=== PATIENT | female | born 1995 | race Hispanic/Latino ===

== ENCOUNTER 2017-06-09 18:26 | Emergency (ER) | payer MEDICAID ==
[2017-06-09 18:44] VITALS: BP 138/90
[2017-06-09 19:31] LABS: Bacteria,Urine 1+ /HPF (Negative); Bilirubin,Urine NEG (Negative); Blood,Urine NEG (Negative); Ketones,Urine NEG (Negative); Leukocyte Esterase,Urine NEG (Negative); Mucus,Urine 3+ /HPF; Nitrite,Urine NEG (Negative); Urobilinogen,Urine < 2.0 mg/dL (<2.0)
[2017-06-09 19:36] LABS: Hematocrit 40.6 % (30.3-42.9); Hemoglobin 13.7 gm/dl (10.1-14.3); Mean Corpuscular HGB Conc 34 % (30-34); Mean Corpuscular Hemoglobin 28 pg (28-32); Mean Corpuscular Volume 83 fl (79-97); Platelet Count 257 K/mm3 (140-440); Red Blood Count 4.87 M/mm3 (3.65-5.03); Red Cell Distribution Width 13.1 % (13.2-15.2); White Blood Count 15.6 K/mm3 (4.5-11.0)
[2017-06-09 19:59] LABS: Alanine Aminotransferase 7 units/L (7-56); Albumin 4.7 g/dL (3.9-5); Albumin/Globulin Ratio 1.4 %; Alkaline Phosphatase 76 units/L (35-129); Anion Gap 19 mmol/L; BUN/Creatinine Ratio 13.75; Blood Urea Nitrogen 11 mg/dL (7-17); Calcium 9.3 mg/dL (8.4-10.2); Carbon Dioxide 25 mmol/L (22-30); Chloride 102.2 mmol/L (98-107); Glucose 116 mg/dL (65-100); Lipase 28 units/L (13-60); Potassium 4.1 mmol/L (3.6-5.0); Sodium 142 mmol/L (137-145)
[2017-06-09 20:07] LABS: Basophils % (Manual) 0 % (0.0-1.8); Blastocytes % (Manual) 0 %; Eosinophils % (Manual) 0 % (0.0-4.3)
[2017-06-09 20:08] LABS: Diff Status Complete; RBC Morphology Normal
--- NOTE | 2017-06-11 01:49 | ED Elopement Review ---
ED Pt Elopement review - Results review Lab results: Laboratory Tests 06/09/17 06/09/17 06/09/17 19:22 19:22 Unknown WBC 15.6 H RBC 4.87 Hgb 13.7 Hct 40.6 MCV 83 MCH 28 MCHC 34 RDW 13.1 L Plt Count 257 Add Manual Diff Complete Total Counted 100 Seg Neutrophils % Drafting Technician Seg Neuts % (Manual) 87.0 H Band Neutrophils % 0 Lymphocytes % (Manual) 7.0 L Reactive Lymphs % (Man) 0 Monocytes % (Manual) 6.0 Eosinophils % (Manual) 0 Basophils % (Manual) 0 Metamyelocytes % 0 Myelocytes % 0 Promyelocytes % 0 Blast Cells % 0 Nucleated RBC % Not Reportable Seg Neutrophils # Man 13.6 H Band Neutrophils # 0.0 Lymphocytes # (Manual) 1.1 L Abs React Lymphs (Man) 0.0 Monocytes # (Manual) 0.9 H Eosinophils # (Manual) 0.0 Basophils # (Manual) 0.0 Metamyelocytes # 0.0 Myelocytes # 0.0 Promyelocytes # 0.0 Blast Cells # 0.0 WBC Morphology Not Reportable Hypersegmented Neuts Not Reportable Hyposegmented Neuts Not Reportable Hypogranular Neuts Not Reportable Smudge Cells Not Reportable Toxic Granulation Not Reportable Toxic Vacuolation Not Reportable Dohle Bodies Not Reportable Pelger-Huet Anomaly Not Reportable Dariana Rods Not Reportable Platelet Estimate Appears normal Clumped Platelets Not Reportable Plt Clumps, EDTA Not Reportable Large Platelets Not Reportable Giant Platelets Not Reportable Platelet Satelliting Not Reportable Plt Morphology Comment Not Reportable RBC Morphology Normal Dimorphic RBCs Not Reportable Polychromasia Not Reportable Hypochromasia Not Reportable Poikilocytosis Not Reportable Anisocytosis Not Reportable Microcytosis Not Reportable Macrocytosis Not Reportable Spherocytes Not Reportable Pappenheimer Bodies Not Reportable Sickle Cells Not Reportable Target Cells Not Reportable Tear Drop Cells Not Reportable Ovalocytes Not Reportable Helmet Cells Not Reportable M[place] Bodies Not Reportable Morning Sun Rings Not Reportable [place] Cells Not Reportable Bite Cells Not Reportable Crenated Cell Not Reportable Elliptocytes Not Reportable Acanthocytes (Spur) Not Reportable Rouleaux Not Reportable Hemoglobin C Crystals Not Reportable Schistocytes Not Reportable Malaria parasites Not Reportable Jonnie Bodies Not Reportable Hem Pathologist Commnt No Sodium 142 Potassium 4.1 Chloride 102.2 Carbon Dioxide 25 Anion Gap 19 BUN 11 Creatinine 0.8 Estimated GFR > 60 BUN/Creatinine Ratio 13.75 Glucose 116 H Calcium 9.3 Total Bilirubin 1.00 AST 11 ALT 7 Alkaline Phosphatase 76 Total Protein 8.0 Albumin 4.7 Albumin/Globulin Ratio 1.4 Lipase 28 Urine Color Yellow Urine Turbidity Clear Urine pH 6.0 Ur Specific [place] 1.030 Urine Protein 30 mg/dl Urine Glucose (UA) Neg Urine Ketones Neg Urine Blood Neg Urine Nitrite Neg Ur Reducing Substances Not Reportable Urine Bilirubin Neg Urine Ictotest Not Reportable Urine Urobilinogen < 2.0 Ur Leukocyte Esterase Neg Urine WBC (Auto) 2.0 Urine RBC (Auto) 4.0 U Epithel Cells (Auto) 7.0 Urine Bacteria (Auto) 1+ Urine Mucus 3+ Urine HCG, Qual Negative - Call Back decision Pt Call Back Decision: Call pt to return to ED QUIANA (call to return)
== END 2017-06-09 21:35 | disposition left against medical advice (07) ==
LOC: ED 18:26
DX: R10.30 Lower abdominal pain, unspecified (principal); R11.2 Nausea with vomiting, unspecified; Z53.21 Procedure and treatment not carried out due to patient leaving prior to being seen by health care provider
CPT/HCPCS: 36415; 80053; 81001; 81025; 83690; 85007; 85025

== ENCOUNTER 2017-06-10 10:10 | Observation (INO) | payer MEDICAID, OTHER ==
[2017-06-10] MEDS ORDERED: TYLENOL PO ONE (10:36)
[2017-06-10] MEDS ORDERED: TYLENOL ONE (10:42)
[2017-06-10 11:18] LABS: Basophils % (Auto) 0.4 % (0.0-1.8); Hematocrit 39.1 % (30.3-42.9); Hemoglobin 13.5 gm/dl (10.1-14.3); Mean Corpuscular HGB Conc 35 % (30-34); Mean Corpuscular Hemoglobin 29 pg (28-32); Mean Corpuscular Volume 83 fl (79-97); Platelet Count 222 K/mm3 (140-440); Red Blood Count 4.71 M/mm3 (3.65-5.03); Red Cell Distribution Width 13.3 % (13.2-15.2)
[2017-06-10 11:22] LABS: Bacteria,Urine 1+ /HPF (Negative); Bilirubin,Urine NEG (Negative); Blood,Urine NEG (Negative); Ketones,Urine NEG (Negative); Leukocyte Esterase,Urine TR (Negative); Mucus,Urine 3+ /HPF; Nitrite,Urine NEG (Negative)
[2017-06-10 11:37] LABS: Alanine Aminotransferase 13 units/L (7-56); Albumin 4.1 g/dL (3.9-5); Albumin/Globulin Ratio 1.1 %; Alkaline Phosphatase 64 units/L (35-129); Anion Gap 20 mmol/L; BUN/Creatinine Ratio 15.71; Blood Urea Nitrogen 11 mg/dL (7-17); Calcium 8.8 mg/dL (8.4-10.2); Carbon Dioxide 22 mmol/L (22-30); Chloride 99.1 mmol/L (98-107); Glucose 111 mg/dL (65-100); Lipase 33 units/L (13-60); Potassium 3.7 mmol/L (3.6-5.0); Sodium 137 mmol/L (137-145); Total Protein 7.8 g/dL (6.3-8.2)
--- NOTE | 2017-06-10 21:17 | Emergency Department Report ---
HPI - General Chief Complaint: Abdominal Pain Time Seen by Provider: 06/10/17 21:17 - HPI HPI: Patient came to the with right lower quadrant pain radiating to periumbilical area, fever, chills for 1 day. Patient denies any alleviating or exacerbating factors. Patient denies any vomiting but does have nausea. Denies diarrhea. Patient does not have past medical history. ED Past Medical Hx - Past Medical History Hx Asthma: Yes (as a child) - Social History Smoking Status: Current Every Day Smoker Substance Use Type: Alcohol - Medications Home Medications: Home Medications Medication Instructions Recorded Confirmed Last Taken Type ALBUTEROL Inhaler [ProAir HFA 2 puff IH QID PRN #1 inhalation 05/05/15 Unknown Rx Inhaler] ED Review of Systems ROS: Stated complaint: LOWER ABD/RIB PAIN Other details as noted in HPI Comment: All other systems reviewed and negative Constitutional: no symptoms reported Gastrointestinal: abdominal pain, nausea Genitourinary: as per HPI Physical Exam - Physical Exam Vital Signs: Vital Signs 06/10/17 06/10/17 06/10/17 10:33 17:50 20:51 Temperature 102.1 F H 99.8 F H 99.7 F H Pulse Rate 127 H 116 H 118 H Respiratory 22 16 16 Rate Blood Pressure 126/84 129/89 122/74 O2 Sat by Pulse 98 100 Oximetry Physical Exam: GENERAL: The patient is well-developed well-nourished [] HEENT: Normocephalic. Atraumatic. Extraocular motions are intact. Patient has moist mucous membranes. NECK: Supple. No meningitic signs are noted. There is no adenopathy noted. CHEST/LUNGS: Clear to auscultation. There is no respiratory distress noted. HEART/CARDIOVASCULAR: Regular. There is no tachycardia. There is no gallop rub or murmur. ABDOMEN: Patient has right lower quadrant tenderness, nondistended, no rebound. SKIN: There is no rash. There is no edema. There is no diaphoresis. NEURO: The patient is awake, alert, and oriented. The patient is cooperative. The patient has no focal neurologic deficits. The patient has normal speech. Cranial nerves II through XII grossly intact, no drift. Moves all extremities well MUSCULOSKELETAL: There is no evidence of acute injury. ED Course Vital Signs 06/10/17 06/10/17 06/10/17 10:33 17:50 20:51 Temperature 102.1 F H 99.8 F H 99.7 F H Pulse Rate 127 H 116 H 118 H Respiratory 22 16 16 Rate Blood Pressure 126/84 129/89 122/74 O2 Sat by Pulse 98 100 Oximetry ED Medical Decision Making - Lab Data Result diagrams: 06/10/17 11:00 06/10/17 11:00 Critical care attestation.: If time is entered above; I have spent that time in minutes in the direct care of this critically ill patient, excluding procedure time. ED Disposition Clinical Impression: Acute appendicitis Qualifiers: Acute appendicitis type: unspecified acute appendicitis type Qualified Code(s) : K35.80 - Unspecified acute appendicitis Disposition: 09 OP ADMIT IP TO THIS HOSP Is pt being admited?: Yes Does the pt Need Aspirin: No Condition: Stable Instructions: Abdominal Pain (ED) Referrals: PRIMARY CARE, [Primary Care Provider] - 3-5 Days
[2017-06-10] MEDS ORDERED: NACL 0.9% 1000 ML 1,000 ML IV ONE ×2 (21:18→22:39)
[2017-06-10] MEDS ORDERED: MORPHINE IV ONE (21:28)
[2017-06-10] MEDS ORDERED: ZOFRAN IV ONE (21:28)
[2017-06-10] MEDS ORDERED: NACL ONE (21:38)
--- NOTE | 2017-06-10 22:27 | Cat Scan Report ---
FINAL REPORT PROCEDURE: CT ABDOMEN PELVIS W CON TECHNIQUE: Computerized axial tomography of the abdomen and pelvis was performed after the IV injection of iodinated nonionic contrast. HISTORY: abd pain COMPARISON: No prior studies are available for comparison. FINDINGS: Visualized lower thorax: No significant abnormality. Liver: Normal size and attenuation. Spleen: Normal size and attenuation. Gallbladder and biliary system: Normal. Pancreas: Normal. Adrenals: Normal. Kidneys: Left kidney is unremarkable. Right kidney demonstrates a multiple irregular areas of scarring without any calculi or hydronephrosis.. GI tract: Normal. Appendix is thickened with moderate degree of periappendiceal fat induration. A focal fluid collection is not identified at the present time. Lymph nodes and mesentery: Normal. Vasculature: Normal. Bladder: Normal. Reproductive organs: A cystic lesion measuring 3 centimeters x 3.5 centimeters is noted in the right adnexal region.. Peritoneum: Minimal degree free fluid is noted in the pelvic cavity.. Musculoskeletal structures: No significant abnormality. Other: None. IMPRESSION: Right lower quadrant findings are suggestive of acute appendicitis. There is no evidence of any abscess formation or perforation at the present time Minimal free fluid is noted in the pelvic cavity. A right adnexal cyst measuring 3 centimeters x 3.5 centimeters is most consistent with a right ovarian cyst. Ultrasound evaluation may be recommended.
[2017-06-10] MEDS ORDERED: ceFAZolin 2 GM in NACL 0.9% 100 ML IV ONE (22:30)
[2017-06-11] MEDS ORDERED: NACL 0.9% 0 ML ONE (00:18)
--- NOTE | 2017-06-11 06:45 | Anesthesia Day of Surgery ---
Anesthesia Day of Surgery - Day of Surgery Patient Examined: Yes Patient H&P Reviewed: Yes Patient is NPO: Yes
--- NOTE | 2017-06-11 06:45 | Anesthesia Consultation ---
Anesthesia Consult and Med Hx Date of service: 06/11/17 - Airway Anesthetic Teeth Evaluation: Good ROM Head & Neck: Adequate Mental/Hyoid Distance: Adequate Mallampati Class: Class I Intubation Access Assessment: Good - Pulmonary Exam CTA: Yes - Cardiac Exam Cardiac Exam: RRR - Pre-Operative Health Status ASA Pre-Surgery Classification: ASA2 Proposed Anesthetic Plan: General - Pulmonary Hx Asthma: Yes (as a child, no meds) COPD: No Hx Pneumonia: No - Endocrine Hx End Stage Renal Disease: No
[2017-06-11] MEDS ORDERED: DILAUDID IV PRN (06:46)
[2017-06-11] MEDS ORDERED: ZOFRAN IV PRN (06:46)
[2017-06-11] MEDS ORDERED: PEPCID IV NR (07:00)
[2017-06-11] MEDS ORDERED: VERSED IV NR (07:00)
[2017-06-11] MEDS ORDERED: LACTATED RINGERS 1,000 ML IV SCH (07:00)
[2017-06-11] MEDS ORDERED: FLAGYL 500 MG/100 ML 500 MG/100 ML BAG IV NR (08:00)
[2017-06-11] MEDS ORDERED: ANCEF/STERILE WATER 2 GM/20 ML IV NR (08:00)
[2017-06-11] MEDS ORDERED: MARCAINE 0.5% 30 ML INFILTRATI ONE (08:00)
[2017-06-11] MEDS ORDERED: QUELICIN ONE (08:01)
[2017-06-11] MEDS ORDERED: DIPRIVAN 10 MG/ML IV ONE (08:01)
[2017-06-11] MEDS ORDERED: XYLOCAINE MPF 2% ONE (08:01)
[2017-06-11] MEDS ORDERED: ZEMURON IV ONE (08:01)
[2017-06-11] MEDS ORDERED: DILAUDID ONE ×2 (08:01→09:24)
--- NOTE | 2017-06-11 08:23 | History and Physical Report ---
HISTORY OF PRESENT ILLNESS: This patient was seen this coordinator [employer]. She is a 22-year-old white female who developed severe pain to the right lower quadrant of about 2 days' duration. She felt nauseated. She had one episode of vomiting 2 days ago. She felt feverish and she was seen apparently by our ER physician where she had a CAT scan that showed evidence of appendiceal edema and stranding in the area, so she was referred to me for further evaluation with the presumptive diagnosis of acute appendicitis. She never had this before. She told me that her dad had the same many years ago. She had the same symptoms. PAST MEDICAL HISTORY: She never had any operation. ALLERGIES: She is not allergic to any medicines. PHYSICAL EXAMINATION: GENERAL: Examination at this point showed well-preserved and moderately obese white female. Her BSA is 2.22 with a BMI of 34.7 kilograms per meter square. HEAD AND NECK: Negative. Neck is supple. CHEST: Essentially clear. HEART: Sound normal. ABDOMEN: Protuberant soft. Well localized tenderness in the right mid lower abdomen with questionable rebound. EXTREMITIES: Showed no significant edema. IMPRESSION AND PLAN: Abdominal pain, nausea, and vomiting with radiological picture of appendiceal edema and stranding in the area. The findings were suggestive of acute appendicitis. At this point, this needs to be addressed surgically. We are going to try to do that with a scope. If not, we need to do that with an open technique. I had a lengthy talk with the patient as to the above and go from there. There is a chance that she may need to go home later on today. No pushing. No pulling. No driving, see me in my office in about 10 days. JOB# [id number] VÍCTORK/NORMA
[2017-06-11] MEDS ORDERED: ROBINUL ONE (08:34)
[2017-06-11] MEDS ORDERED: NEOSTIGMINE ONE (08:34)
[2017-06-11] MEDS ORDERED: NACL 0.9% IR ONE ×2 (08:47)
[2017-06-11] MEDS ORDERED: DECADRON ONE (09:01)
[2017-06-11] MEDS ORDERED: ZOFRAN ONE (09:01)
[2017-06-11] MEDS ORDERED: MARCAINE 0.5% INFILTRATI ONE (09:19)
[2017-06-11 10:45] VITALS: BP 108/77
--- NOTE | 2017-06-11 13:03 | Post Anesthesia Evaluation ---
- Post Anesthesia Evaluation Patient Participated: Yes Airway Patent: Yes Stable Respiratory Function: Yes Nausea/Vomiting: No Temp > 96.8F: Yes Pain Manageable: Yes Adequeate Hydration: Yes Anesthesia Complications: No Block Receding Appropriately: Not Applicable Patient on Ventilator: No
--- NOTE | 2017-06-11 13:18 | Operative Report ---
PREOPERATIVE DIAGNOSIS: Acute appendicitis. POSTOPERATIVE DIAGNOSIS: Acute appendicitis with gangrene. SURGERY: Laparoscopic appendectomy. ANESTHESIA: General. BLOOD LOSS: About 100 mL. There was some bleeding from the appendiceal artery. This was handled with the use of an endoclip. PROCEDURE: With the patient in supine position after cleaning and draping in usual fashion, I made a small incision in the left mid upper abdomen with the Veress needle, I was able to do CO2 pressure of 15 for which #5 trocar was inserted. With use of the camera #5, I was able to introduce 2 more trocars, 5 in the suprapubic area and 10 in the infraumbilical area. The appendix was really stuck to the cecum, I had to dissect it slowly at its base with the use of the Endo-ALICIA. Then, the appendix was removed in toto. The appendiceal artery was identified. This was endoclipped clipped x 2. We had good hemostasis. We were well satisfied. The area was then irrigated with sterile normal saline, then all the trocars were removed after taking the specimen out via the EndoCatch. I did check the specimen that it was the appendix. We had good hemostasis, so the fascia was closed with #0 Vicryl in [id number] and the skin with 4-0 Vicryl and bandage. The patient was then transferred to the recovery room in good condition. JOB# [id number] JESSICA/NORMA
[2017-06-11] MEDS: MORPHINE IV PRN ×2 (13:48→17:23)
--- NOTE | 2017-06-11 14:06 | Operative Report ---
PREOPERATIVE DIAGNOSIS: Acute appendicitis. POSTOPERATIVE DIAGNOSIS: Acute appendicitis. SURGERY: Laparoscopic appendectomy. ANESTHESIA: General. BLOOD LOSS: Minimal. FINDINGS: This patient had an acutely inflamed appendix. She had been having pain for about 2 days now. FINDINGS: The appendix was severely inflamed. There are some areas of patchy gangrene. DESCRIPTION OF PROCEDURE: With the patient in supine position, prepped and draped in the usual fashion. I made a small incision in the left mid abdomen. With a Veress needle, I was able to insufflate the abdominal cavity with CO2 of pressure 15 for which #5 trocar was inserted. With the use of the camera, I was able to introduce two more trocars, #10 in the infraumbilical area, another #5 in the infraumbilical area in the suprapubic aspect. The patient was then put on her left side down and I was able to see the appendix. This was dissected free and I used the Endo-ALICIA for that purpose at its base. Then, the mesoappendix was endo-clipped in the usual fashion. We had some bleeding and this was handled with good hemostasis on that occasion. With that maneuvering, the appendix was removed via the EndoCatch in the usual fashion and then the fascia was closed with #0 Vicryl [id number] and 4-0 for the skin. Bandages were applied. The patient was then transferred to the recovery room in good condition, going to have her go home today late after 6 o'clock. We have given a prescription for Levaquin 500 mg p.o. daily for 5 days and Vicodin 5/325. Thank you, I appreciate you help. JOB# [id number] JESSICA/NORMA
--- NOTE | 2017-06-11 20:15 | Discharge Summary ---
FINAL DIAGNOSIS: Acute appendicitis. HOSPITAL COURSE: This patient came because of pain in the right lower quadrant with severe nausea. She vomited on one occasion. She was found to have edema and thickening of her appendix. She was taken to the operating room where she underwent laparoscopic appendectomy postop. At this time, she may go home after about 5 to 6 hours to see me in the office in about 10 days. She was given prescription for Vicodin and Keflex. JOB# [id number] JESSICA/NORMA
== END 2017-06-11 18:04 | disposition home or self-care (01) ==
LOC: ED 10:10 → 2B-SURG 22:38
PROVIDERS: ADMIT Surgery; ATTEND Surgery
DX: K35.80 Unspecified acute appendicitis (principal)
CPT/HCPCS: 36415; 44970; 74177; 80053; 81001; 81025; 83690; 85025; 88304; 96365; 96375; 96376; 99285; A4217; G0378; J0330; J0690; J1100; J1170; J2250; J2270; J2405; J2704; J2710; J7030; J7120; Q9967